=== PATIENT | female | born 1960 | race African-American/Black ===

== ENCOUNTER 2016-10-15 10:10 | Inpatient (IN) | payer OTHER ==
[~2016-10-15] VITALS: Ht 170.2 cm; Wt 174.2 kg
[2016-10-15] MEDS ORDERED: PANTOPRAZOLE IV PUSH 40 MG VIAL. IVP ONE (10:30)
[2016-10-15] MEDS ORDERED: IV NORMAL SALINE 1000ML BAG 1,000 ML IV ONE (10:30)
--- NOTE | 2016-10-15 10:32 | PHYS DOC ---
Past Medical History Past Medical History: Pancreatitis Additional Past Medical Histor: pre diabetes Additional Past Surgical Histo: "gall bladder cleaned out" Adult General Chief Complaint Chief Complaint: NAUSEA/VOMITING/DIARRHA HPI HPI Patient is a 55 year old female presents emergency department stating that she woke up this morning with some abdominal pain and discomfort with nausea feeling. She does state that she vomited numerous times. She states that she did try to drink some water and take some applesauce. Shunt she had taken anything she threw up. She states that she feels like she is having acid reflex. She states that she has had her gallbladder cleaned out not removed just cleaned out. Patient states she did eat has a proper's last night. She states there is other people that ate the same meal that she ate with no nausea noted. She does deny diarrhea. Denies fever, chills. Patient does state that she did become slightly lightheaded. She also states that she had a small bowel movement this morning it was slightly hard. She does state she has a history of constipation. Review of Systems Review of Systems Constitutional: Denies fever or chills [] Eyes: Denies change in visual acuity, redness, or eye pain [] HENT: Denies nasal congestion or sore throat [] Respiratory: Denies cough or shortness of breath [] Cardiovascular: No additional information not addressed in HPI [] GI: epigastric abdominal pain, nausea, vomiting, denies bloody stools or diarrhea [] : Denies dysuria or hematuria [] Musculoskeletal: Denies back pain or joint pain [] Integument: Denies rash or skin lesions [] Neurologic: Denies headache, focal weakness or sensory changes [] Current Medications Current Medications Current Medications Medications (Trade) Dose Ordered Sig/Ratna Start Time Stop Time Status Last Admin Dose Admin Pantoprazole Sodium (Protonix Vial) 40 mg 1X ONCE 10/15/16 10:30 10/15/16 10:35 DC 10/15/16 10:54 40 MG Sodium Chloride (Iv Sodium Chloride 0.9% 1000ml Bag) 1,000 ml @ 1,000 mls/hr 1X ONCE 10/15/16 10:30 10/15/16 11:29 DC 10/15/16 10:54 1,000 MLS/HR Allergies Allergies Allergies Coded Allergies Type Severity Reaction Last Updated Verified No Known Drug Allergies 10/15/16 No Physical Exam Physical Exam Constitutional: Well developed, well nourished, no acute distress, non-toxic appearance. [] HENT: Normocephalic, atraumatic, bilateral external ears normal, oropharynx moist, no oral exudates, nose normal. [] Eyes: PERRLA, EOMI, conjunctiva normal, no discharge. [] Neck: Normal range of motion, no tenderness, supple, no stridor. [] Cardiovascular:Heart rate regular rhythm, no murmur [] Lungs & Thorax: Bilateral breath sounds clear to auscultation [] Abdomen: Bowel sounds hypoactive, soft, epigastric tenderness, no masses, no pulsatile masses. No guarding no rebound tenderness noted Skin: Warm, dry, no erythema, no rash. [] Back: No tenderness Extremities: No tenderness, no cyanosis, no clubbing, ROM intact, no edema. [] Neurologic: Alert and oriented X 3, normal motor function, normal sensory function, no focal deficits noted. [] Psychologic: Affect normal, judgement normal, mood normal. [] Current Patient Data Vital Signs Vital Signs Date Time Temp Pulse Resp B/P Pulse Ox O2 Delivery O2 Flow Rate FiO2 10/15/16 11:00 74 18 136/82 97 Room Air 10/15/16 10:10 98.1 98.1 Lab Values Laboratory Tests Test 10/15/16 10:40 10/15/16 11:30 White Blood Count 10.1x10^3/uL (4.0-11.0) Red Blood Count 4.59x10^6/uL (3.50-5.40) Hemoglobin 14.1g/dL (12.0-15.5) Hematocrit 41.6% (36.0-47.0) Mean Corpuscular Volume 91fL (79-100) Mean Corpuscular Hemoglobin 31pg (25-35) Mean Corpuscular Hemoglobin Concent 34g/dL (31-37) Red Cell Distribution Width 13.0% (11.5-14.5) Platelet Count 182x10^3/uL (140-400) Neutrophils (%) (Auto) 89% (31-73) H Lymphocytes (%) (Auto) 5% (24-48) L Monocytes (%) (Auto) 6% (0-9) Eosinophils (%) (Auto) 1% (0-3) Basophils (%) (Auto) 0% (0-3) Neutrophils # (Auto) 9.0x10^3uL (1.8-7.7) H Lymphocytes # (Auto) 0.5x10^3/uL (1.0-4.8) L Monocytes # (Auto) 0.6x10^3/uL (0.0-1.1) Eosinophils # (Auto) 0.1x10^3/uL (0.0-0.7) Basophils # (Auto) 0.0x10^3/uL (0.0-0.2) Segmented Neutrophils % 89% (35-66) H Band Neutrophils % 2% (0-9) Lymphocytes % 4% (24-48) L Monocytes % 3% (0-10) Eosinophils % 2% (0-5) Platelet Estimate Adequate (ADEQUATE) Sodium Level 146mmol/L (136-145) H Potassium Level 4.1mmol/L (3.5-5.1) Chloride Level 109mmol/L (98-107) H Carbon Dioxide Level 27mmol/L (21-32) Anion Gap 10 (6-14) Blood Urea Nitrogen 18mg/dL (7-20) Creatinine 0.9mg/dL (0.6-1.0) Estimated GFR (Cockcroft-Gault) 78.1 BUN/Creatinine Ratio 20 (6-20) Glucose Level 117mg/dL (70-99) H Calcium Level 9.1mg/dL (8.5-10.1) Total Bilirubin 0.3mg/dL (0.2-1.0) Aspartate Amino Transferase (AST) 24U/L (15-37) Alanine Aminotransferase (ALT) 30U/L (14-59) Alkaline Phosphatase 70U/L (46-116) Total Protein 7.1g/dL (6.4-8.2) Albumin 3.6g/dL (3.4-5.0) Albumin/Globulin Ratio 1.0 (1.0-1.7) Amylase Level 290U/L (25-115) H Lipase 2916U/L (73-393) H Urine Collection Type Unknown Urine Color Yellow Urine Clarity Cloudy Urine pH 8.0 Urine Specific [place] 1.015 Urine Protein Negativemg/dL (NEG-TRACE) Urine Glucose (UA) Negativemg/dL (NEG) Urine Ketones (Stick) Negativemg/dL (NEG) Urine Blood Negative (NEG) Urine Nitrite Negative (NEG) Urine Bilirubin Negative (NEG) Urine Urobilinogen Dipstick 1.0mg/dL (0.2 mg/dL) Urine Leukocyte Esterase Negative (NEG) Urine RBC 0/HPF (0-2) Urine WBC 0/HPF (0-4) Urine Squamous Epithelial Cells None/LPF Urine Amorphous Sediment Present/HPF Urine Bacteria 0/HPF (0-FEW) Laboratory Tests 10/15/16 10:40 Laboratory Tests 10/15/16 10:40 EKG EKG [] Radiology/Procedures Radiology/Procedures [][facility] [address] [place] [address] IMAGING REPORT Signed PATIENT: MICHI HARRINGTON ACCOUNT: [id number] : 1960 LOCATION: ER AGE: 55 SEX: F EXAM STATUS: REG ER ORD. PHYSICIAN: ASHUTOSH MOSQUERA NP REASON: upper abdominal pain with hx of constipation PROCEDURE: ACUTE ABDOMEN SERIES Examination: Acute abdomen series History: History of abdominal pain, epigastric pain, history of pancreatitis, dizziness, weakness Comparison: Chest x-ray from 10/21/2009 Findings: Mild cardiomegaly. There is no acute infiltrate or visualized pneumothorax identified. No evidence of free air noted under the hemidiaphragms. Moderate amount of stool noted throughout the colon likely secondary to constipation. Gas projects in the rectum. Nonspecific bowel gas pattern. Impression: 1. No acute cardiopulmonary findings. 2. Moderate amount of stool noted throughout the colon. Correlate for constipation. DICTATED and SIGNED BY: JENIFER IKM MD DATE: 10/15/16 5279 CC: ASHUTOSH MOSQUERA EMERGENCY ROOM RN; YUE MANJARREZ Course & Med Decision Making Course & Med Decision Making Pertinent Labs and Imaging studies reviewed. (See chart for details) Spoke with patient in regards of lab values and pancreatitis. Patient states that she is still having a little bit of abdominal pain and still feels nauseated. Patient will be admitted into the hospital. Spoke with Dr. Mills who agrees with admission. Admission orders written. [] Dragon Disclaimer Dragon Disclaimer This electronic medical record was generated, in whole or in part, using a voice recognition dictation system. Departure Departure Impression: Primary Impression: Acute pancreatitis Disposition: 09 ADMITTED INPATIENT Admitting Physician: Pina Mills Condition: STABLE Referrals: YUE MANJARREZ (PCP) ASHUTOSH MOSQUERA NP Oct 15, 2016 10:32
[2016-10-15 10:56] LABS: BASO % 0 % (0-3); EOS % 1 % (0-3); HEMATOCRIT 41.6 % (36.0-47.0); HEMOGLOBIN 14.1 g/dL (12.0-15.5); LYMPH # 0.5 x10^3/uL (1.0-4.8); LYMPH % 5 % (24-48); MEAN CORPUSCULAR HEMOGLOBIN 31 pg (25-35); MEAN CORPUSCULAR HGB CONC 34 g/dL (31-37); MEAN CORPUSCULAR VOLUME 91 fL (79-100); MONO % 6 % (0-9); NEUT % 89 % (31-73); PLATELET COUNT 182 x10^3/uL (140-400); RED BLOOD COUNT 4.59 x10^6/uL (3.50-5.40); WHITE BLOOD COUNT 10.1 x10^3/uL (4.0-11.0)
[2016-10-15 11:02] LABS: CALCIUM 9.1 mg/dL (8.5-10.1); CREATININE 0.9 mg/dL (0.6-1.0); GFR 78.1; POTASSIUM 4.1 mmol/L (3.5-5.1)
[2016-10-15 11:09] LABS: ALBUMIN 3.6 g/dL (3.4-5.0); TOTAL BILIRUBIN 0.3 mg/dL (0.2-1.0); TOTAL PROTEIN 7.1 g/dL (6.4-8.2)
--- NOTE | 2016-10-15 11:11 | RAD ---
Examination: Acute abdomen series History: History of abdominal pain, epigastric pain, history of pancreatitis, dizziness, weakness Comparison: Chest x-ray from 10/21/2009 Findings: Mild cardiomegaly. There is no acute infiltrate or visualized pneumothorax identified. No evidence of free air noted under the hemidiaphragms. Moderate amount of stool noted throughout the colon likely secondary to constipation. Gas projects in the rectum. Nonspecific bowel gas pattern. Impression: 1. No acute cardiopulmonary findings. 2. Moderate amount of stool noted throughout the colon. Correlate for constipation.
[2016-10-15 11:38] LABS: BILIRUBIN,URINE NEGATIVE (NEG); GLUCOSE,URINE NEGATIVE (NEG); NITRITE,URINE NEGATIVE (NEG); PROTEIN,URINE NEGATIVE (NEG-TRACE)
[2016-10-15 11:39] LABS: % EOS 2 % (0-5); PLT ESTIMATE ADEQUATE (ADEQUATE)
[2016-10-15 11:47] LABS: BACTERIA,URINE 0 /HPF (0-FEW); RBC,URINE 0 /HPF (0-2); WBC,URINE 0 /HPF (0-4)
[2016-10-15] MEDS ORDERED: FENTANYL PF 100 MCG/2 ML VIAL. IV PRN (12:15)
[2016-10-15] MEDS ORDERED: ONDANSETRON PF 4 MG/2 ML VIAL. IV PRN (12:15)
[2016-10-15] MEDS ORDERED: MULTIVIT INFUSN,ADULT 4,VIT K 10 ML, FOLIC ACID 1 MG, THIAMINE 100 MG in IV NORMAL SALI... IV ONE (13:00)
[2016-10-15 13:25] VITALS: BP 120/61
--- NOTE | 2016-10-15 14:14 | HP ---
ADMIT DATE: 10/15/2016 CHIEF COMPLAINT: Abdominal pain. HISTORY OF THE PRESENT ILLNESS: The patient is a pleasant middle-aged female who continues to drink. She states she only had one Kim at this time. Once again, she presents with pancreatitis. Her lipase is 2916. I discussed the case with the ER physician. We are going to admit the patient and consult Gastroenterology. PAST MEDICAL HISTORY: Alcoholism, previous chronic pancreatitis. ALLERGIES: None. FAMILY HISTORY: Diabetes. SOCIAL HISTORY: She drinks. She does not do any drugs. MEDICATIONS: Reviewed. Please refer to the MRAD. REVIEW OF SYSTEMS: GENERAL: No history of weight change, weakness, or fevers. SKIN: No bruising, hair changes, or rashes. EYES: No blurred, double, or loss of vision. NOSE AND THROAT: No history of nosebleeds, hoarseness, or sore throat. HEART: No history of palpitations, chest pain, or shortness of breath on exertion. LUNGS: Denies cough, hemoptysis, wheezing or shortness of breath. GASTROINTESTINAL: She complains of abdominal pain. GENITOURINARY: No history of frequency, urgency, hesitancy, or nocturia. NEUROLOGIC: Denies history of numbness, tingling, tremor, or weakness. PSYCHIATRIC: No history of panic, anxiety, or depression. ENDOCRINE: No history of heat or cold intolerance, polyuria, or polydipsia. EXTREMITIES: Denies muscle weakness, joint pain, pain on walking, or stiffness. PHYSICAL EXAMINATION: VITAL SIGNS: Temperature afebrile, pulse 77, respirations 18, and blood pressure 139/83. GENERAL: She is alert, cooperative, and complaining of pain. HEART: Normal S1 and S2. LUNGS: Clear. ABDOMEN: Soft. Decreased bowel sounds, tender. EXTREMITIES: No edema. SKIN: No rashes. PSYCHIATRIC: She is depressed. VASCULAR: Good capillary refill. ENDOCRINE: No thyromegaly. LYMPHATICS: There are no cervical nodes. HEMATOPOIETIC: No bruising. LABORATORY DATA: White count 10, hemoglobin 14, and platelets 182. Electrolytes: Sodium 146, potassium 4.1, chloride 109, bicarbonate 27, BUN 18, creatinine 0.9, glucose 117, and lipase 2916. ASSESSMENT AND PLAN: Alcoholic pancreatitis. The patient has been admitted. We will start IV banana bag, p.r.n. narcotics, IV fluids, resume home medications, but continue otherwise n.p.o. GISELA CANCINO DO DR: MISTY/frederick JOB#: [id number] / [id number]
[2016-10-15 15:00] VITALS: BP 123/69
--- NOTE | 2016-10-15 15:02 | PDOC2 ---
CONSULT Date of Consult Date of Consult DATE: 10/15/16 TIME: 14:47 Reason for Consult Reason for Consult: Pancreatitis Referring Physician Referring Physician: Dr. Mills Source Source: Chart review, Patient History of Present Illness Reason for Visit: 55 y/o female who developed acute epigastric pain early this AM. Had multiple episodes of nausea and vomiting w/o diarrhea. Ultimately presented to ER where elevated Lipase c/w pancreatitis. Now feeling improved. Has h/o pancreatitis during a remote ; doesn't really recall if truly stones or not, but underwent what sounds like ERCP, maybe with clearing of CBD stones or sludge. DID NOT have cholecystectomy. She believes she may have had milder attacks with each of her pregnancies, though not documented. At one time she was taking pancreatic enzymes and felt these were effective. Never an abuser of alcohol. No FH of pancreatitis. No imaging above plain films of the abdomen here. Typically free of heartburn, dysphagia. May have occasional LUQ "twinges" she attributes to her pancreas. No PUD, liver history. Non-smoker. Only occasional alcohol. No ASA, NSAID use. Frequent constipation. No diarrhea, hematochezia nor melena. Wt/appetite OK before current issues. Believes she had normal colonoscopy ~10 or more years ago. Never EGD. GI family history positive for CRC in mother. Past Medical History Endocrine: Diabetes ("pre-diabetes") Past Surgical History Past Surgical History None Family History Family History: Hypertension Social History No ALCOHOL: occassional Drugs: None Current Problem List Problem List Problems Medical Problems: (1) Acute pancreatitis Status: Acute Current Medications Current Medications Current Medications Sodium Chloride (Iv Sodium Chloride 0.9% 1000ml Bag) 1,000 ml @ 1,000 mls/hr 1X ONCE IV Last administered on 10/15/16 10:54; Start 10/15/16 at 10:30; Stop 10/15/16 at 11:29; Status DC Pantoprazole Sodium (Protonix Vial) 40 mg 1X ONCE IVP Last administered on 10/15 10:54; Start 10/15/16 at 10:30; Stop 10/15/16 at 10:35; Status DC Ondansetron HCl (Zofran) 4 mg PRN Q8HRS PRN IV NAUSEA/VOMITING; Start 10/15/16 at 12:15; Stop 10/16/16 at 12:14 Fentanyl Citrate 50 mcg 50 mcg PRN Q2HR PRN IV PAIN; Start 10/15/16 at 12:15; Stop 10/16/16 at 12:14 Sodium Chloride 1,000 ml @ 125 mls/hr Q8H IV ; Start 10/15/16 at 14:00; Stop 10/16/16 at 13:59 Multivitamins/ Minerals/Folic Acid/Thiamine HCl/ Sodium Chloride (Infuvite Adult / Iv Sodium Chloride 0.9% 1000ml Bag) 1,011.2 ml @ 1,000 mls/ hr 1X ONCE IV Last administered on 10/15/16t 12:43; Start 10/15/16 at 13:00; Stop 10/15/16 at 14: 00; Status DC Allergies Allergies: Coded Allergies: No Known Drug Allergies (Unverified , 10/15/16) ROS Review of System 10-point review otherwise negative. Physical Exam General: Alert, Oriented X3, Cooperative, mild distress Lungs: Clear to auscultation Heart: Regular rate, Normal S1, Normal S2, No murmurs Abdomen: Normal bowel sounds, Soft, No hepatosplenomegaly, No masses, Other ( Mild epigastric tenderness) Extremities: No cyanosis, No edema Skin: No significant lesion Neuro: Normal speech, Strength at 5/5 X4 ext, Normal tone, Sensation intact, Cranial nerves 3-12 NL, Reflexes 2+ Psych/Mental Status: Mental status NL, Mood NL MUSCULOSKELETAL: No deformity, No swelling Vitals VITALS Vital Signs Date Time Temp Pulse Resp B/P Pulse Ox O2 Delivery O2 Flow Rate FiO2 10/15/16 13:51 Room Air 10/15/16 13:25 99.7 81 18 120/61 97 99.7 Labs Labs Laboratory Tests Test 10/15/16 10:40 10/15/16 11:30 White Blood Count 10.1x10^3/uL (4.0-11.0) Red Blood Count 4.59x10^6/uL (3.50-5.40) Hemoglobin 14.1g/dL (12.0-15.5) Hematocrit 41.6% (36.0-47.0) Mean Corpuscular Volume 91fL (79-100) Mean Corpuscular Hemoglobin 31pg (25-35) Mean Corpuscular Hemoglobin Concent 34g/dL (31-37) Red Cell Distribution Width 13.0% (11.5-14.5) Platelet Count 182x10^3/uL (140-400) Neutrophils (%) (Auto) 89% (31-73) Lymphocytes (%) (Auto) 5% (24-48) Monocytes (%) (Auto) 6% (0-9) Eosinophils (%) (Auto) 1% (0-3) Basophils (%) (Auto) 0% (0-3) Neutrophils # (Auto) 9.0x10^3uL (1.8-7.7) Lymphocytes # (Auto) 0.5x10^3/uL (1.0-4.8) Monocytes # (Auto) 0.6x10^3/uL (0.0-1.1) Eosinophils # (Auto) 0.1x10^3/uL (0.0-0.7) Basophils # (Auto) 0.0x10^3/uL (0.0-0.2) Segmented Neutrophils % 89% (35-66) Band Neutrophils % 2% (0-9) Lymphocytes % 4% (24-48) Monocytes % 3% (0-10) Eosinophils % 2% (0-5) Platelet Estimate Adequate (ADEQUATE) Sodium Level 146mmol/L (136-145) Potassium Level 4.1mmol/L (3.5-5.1) Chloride Level 109mmol/L (98-107) Carbon Dioxide Level 27mmol/L (21-32) Anion Gap 10 (6-14) Blood Urea Nitrogen 18mg/dL (7-20) Creatinine 0.9mg/dL (0.6-1.0) Estimated GFR (Cockcroft-Gault) 78.1 BUN/Creatinine Ratio 20 (6-20) Glucose Level 117mg/dL (70-99) Calcium Level 9.1mg/dL (8.5-10.1) Total Bilirubin 0.3mg/dL (0.2-1.0) Aspartate Amino Transf (AST/SGOT) 24U/L (15-37) Alanine Aminotransferase (ALT/SGPT) 30U/L (14-59) Alkaline Phosphatase 70U/L (46-116) Total Protein 7.1g/dL (6.4-8.2) Albumin 3.6g/dL (3.4-5.0) Albumin/Globulin Ratio 1.0 (1.0-1.7) Amylase Level 290U/L (25-115) Lipase 2916U/L (73-393) Urine Collection Type Unknown Urine Color Yellow Urine Clarity Cloudy Urine pH 8.0 Urine Specific [place] 1.015 Urine Protein Negativemg/dL (NEG-TRACE) Urine Glucose (UA) Negativemg/dL (NEG) Urine Ketones (Stick) Negativemg/dL (NEG) Urine Blood Negative (NEG) Urine Nitrite Negative (NEG) Urine Bilirubin Negative (NEG) Urine Urobilinogen Dipstick 1.0mg/dL (0.2 mg/dL) Urine Leukocyte Esterase Negative (NEG) Urine RBC 0/HPF (0-2) Urine WBC 0/HPF (0-4) Urine Squamous Epithelial Cells None/LPF Urine Amorphous Sediment Present/HPF Urine Bacteria 0/HPF (0-FEW) Laboratory Tests Test 10/15/16 10:40 10/15/16 11:30 White Blood Count 10.1x10^3/uL (4.0-11.0) Red Blood Count 4.59x10^6/uL (3.50-5.40) Hemoglobin 14.1g/dL (12.0-15.5) Hematocrit 41.6% (36.0-47.0) Mean Corpuscular Volume 91fL (79-100) Mean Corpuscular Hemoglobin 31pg (25-35) Mean Corpuscular Hemoglobin Concent 34g/dL (31-37) Red Cell Distribution Width 13.0% (11.5-14.5) Platelet Count 182x10^3/uL (140-400) Neutrophils (%) (Auto) 89% (31-73) Lymphocytes (%) (Auto) 5% (24-48) Monocytes (%) (Auto) 6% (0-9) Eosinophils (%) (Auto) 1% (0-3) Basophils (%) (Auto) 0% (0-3) Neutrophils # (Auto) 9.0x10^3uL (1.8-7.7) Lymphocytes # (Auto) 0.5x10^3/uL (1.0-4.8) Monocytes # (Auto) 0.6x10^3/uL (0.0-1.1) Eosinophils # (Auto) 0.1x10^3/uL (0.0-0.7) Basophils # (Auto) 0.0x10^3/uL (0.0-0.2) Segmented Neutrophils % 89% (35-66) Band Neutrophils % 2% (0-9) Lymphocytes % 4% (24-48) Monocytes % 3% (0-10) Eosinophils % 2% (0-5) Platelet Estimate Adequate (ADEQUATE) Sodium Level 146mmol/L (136-145) Potassium Level 4.1mmol/L (3.5-5.1) Chloride Level 109mmol/L (98-107) Carbon Dioxide Level 27mmol/L (21-32) Anion Gap 10 (6-14) Blood Urea Nitrogen 18mg/dL (7-20) Creatinine 0.9mg/dL (0.6-1.0) Estimated GFR (Cockcroft-Gault) 78.1 BUN/Creatinine Ratio 20 (6-20) Glucose Level 117mg/dL (70-99) Calcium Level 9.1mg/dL (8.5-10.1) Total Bilirubin 0.3mg/dL (0.2-1.0) Aspartate Amino Transf (AST/SGOT) 24U/L (15-37) Alanine Aminotransferase (ALT/SGPT) 30U/L (14-59) Alkaline Phosphatase 70U/L (46-116) Total Protein 7.1g/dL (6.4-8.2) Albumin 3.6g/dL (3.4-5.0) Albumin/Globulin Ratio 1.0 (1.0-1.7) Amylase Level 290U/L (25-115) Lipase 2916U/L (73-393) Urine Collection Type Unknown Urine Color Yellow Urine Clarity Cloudy Urine pH 8.0 Urine Specific [place] 1.015 Urine Protein Negativemg/dL (NEG-TRACE) Urine Glucose (UA) Negativemg/dL (NEG) Urine Ketones (Stick) Negativemg/dL (NEG) Urine Blood Negative (NEG) Urine Nitrite Negative (NEG) Urine Bilirubin Negative (NEG) Urine Urobilinogen Dipstick 1.0mg/dL (0.2 mg/dL) Urine Leukocyte Esterase Negative (NEG) Urine RBC 0/HPF (0-2) Urine WBC 0/HPF (0-4) Urine Squamous Epithelial Cells None/LPF Urine Amorphous Sediment Present/HPF Urine Bacteria 0/HPF (0-FEW) Images Images Plain films unrevealing. Assessment/Plan Assessment/Plan IMP: 1. Pancreatitis, recurrent. Cause a bit obscure historically, though doesn't seem enough alcohol history to invoke this. Hard to believe cholecystectomy not done if this was felt to be the issue. Failing any biliary disease, idiopathic pancreatitis accounts for a sizeable portion. SOD remotely possible. 2. FH of CRC in first-degree relative. A bit overdue for screening. REC: 1. Continue general supportive measures. 2. CT abdomen/pelvis. If still not clear gallstones or not, sono. --other pending. Thank you for allowing us to assist in the care of this patient. Please call if questions. JOVITA NGUYEN MD Oct 15, 2016 15:02
[2016-10-15] MEDS: IV NORMAL SALINE 1000ML BAG 1,000 ML IV SCH ×2 (15:22→20:16)
[2016-10-15] MEDS ORDERED: IOHEXOL 300 MG/ML 75 ML VIAL IV ONE (16:30)
[2016-10-15] MEDS ORDERED: IOHEXOL 240 MG/ML 50ML VIAL. PO ONE (16:30)
[2016-10-15] MEDS ORDERED: CONTRAST GIVEN MC PRN (16:30)
--- NOTE | 2016-10-15 16:45 | ACF ---
Admission Forms Criteria PANCREATITIS Clinical Indications for Admission to Inpatient Care (Place 'X' for any and all applicable criteria): Admission is indicated for ANY ONE of the following (1)(2)(3)(4): [X]I. Acute pancreatitis[A] as indicated by 2 or more of the following: [X]a) Abdominal pain (eg, epigastric, left upper quadrant) [X]b) Serum amylase or serum lipase greater than 3 times the upper limit of normal [ ]c) Characteristic findings from abdominal imaging (eg, pancreatic inflammation, pancreatic necrosis, peripancreatic fluid collection)[B] [ ]II. Pancreatitis (acute or chronic ) requiring inpatient care as indicated by 1 or more of the following : [ ]a) Inability to maintain oral hydration Hypoxemia [ ]b) Evidence of infection (eg, fever, peripancreatic abscess) [ ]c) Severe pain requiring acute inpatient management [ ]d) Hemodynamic instability [ ]e) Hypoxemia [ ]f) Acute renal failure [ ]g) Severe electrolyte abnormalities Extended stay beyond goal length of stay may be needed for (1)(11) [ ]a) Severe acute pancreatitis (10)(19) [ ]b) Persistent symptoms, ascites, or pleural effusion [ ]c) Abdominal compartment syndrome (10) [ ]d) Late complications [ ]e) Acute renal failure (27) [ ]f) Gallstones in gallbladder The original [employer] content created by [employer] has been revised. The portions of the content which have been revised are identified through the use of italic text or in bold,and [facility] has neither reviewed nor approved the modified material.All other unmodified content is copyright [facility]. Please see references footnoted in the original [facility] edition 2016 Admission Criteria Met?: Yes MIMA CORBIN Oct 15, 2016 16:45
[2016-10-15] MEDS: PIPERACILLIN/TAZOBACTAM 3.375 GM in IV NORMAL SALINE 50ML 50 ML IV SCH ×2 (17:57→23:49)
[2016-10-15 19:00] VITALS: BP 110/62
[2016-10-15 23:00] VITALS: BP 102/64
[2016-10-16 03:00] VITALS: BP 107/68
[2016-10-16 04:08] LABS: BASO % 0 % (0-3); EOS % 1 % (0-3); HEMATOCRIT 36.3 % (36.0-47.0); HEMOGLOBIN 12.3 g/dL (12.0-15.5); LYMPH # 0.8 x10^3/uL (1.0-4.8); LYMPH % 13 % (24-48); MEAN CORPUSCULAR HEMOGLOBIN 31 pg (25-35); MEAN CORPUSCULAR HGB CONC 34 g/dL (31-37); MEAN CORPUSCULAR VOLUME 91 fL (79-100); MONO % 6 % (0-9); NEUT % 80 % (31-73); PLATELET COUNT 153 x10^3/uL (140-400); RED BLOOD COUNT 3.97 x10^6/uL (3.50-5.40); RED CELL DISTRIBUTION WIDTH 13.2 % (11.5-14.5); WHITE BLOOD COUNT 6.4 x10^3/uL (4.0-11.0)
[2016-10-16 04:29] LABS: AMYLASE 102 U/L (25-115)
[2016-10-16 04:41] LABS: DIRECT BILIRUBIN 0.2 mg/dL (0.0-0.2); TOTAL BILIRUBIN 0.7 mg/dL (0.2-1.0); TOTAL PROTEIN 5.7 g/dL (6.4-8.2)
[2016-10-16 04:45] LABS: CALCIUM 7.9 mg/dL (8.5-10.1); CREATININE 0.9 mg/dL (0.6-1.0); GFR 78.1; POTASSIUM 3.2 mmol/L (3.5-5.1)
[2016-10-16] MEDS: PIPERACILLIN/TAZOBACTAM 3.375 GM in IV NORMAL SALINE 50ML 50 ML IV SCH ×4 (05:48→23:37)
[2016-10-16] MEDS: IV NORMAL SALINE 1000ML BAG 1,000 ML IV SCH (05:48)
[2016-10-16 07:00] VITALS: BP 117/65
[2016-10-16] MEDS ORDERED: ONDANSETRON PF 4 MG/2 ML VIAL. IV PRN (07:15)
[2016-10-16] MEDS ORDERED: POTASSIUM CHLORIDE 20 MEQ TABLET.ER. PO ONE (07:15)
--- NOTE | 2016-10-16 08:49 | RAD ---
CT scan of the abdomen and pelvis with contrast 10/15/2016 Clinical history: Pancreatitis. Technique: After oral and intravenous administration of contrast, contiguous, 5 mm axial sections were obtained through the abdomen and pelvis. 75 cc of Omnipaque 300 were administered intravenously during this examination. One or more of the following individualized dose reduction techniques were utilized for this study: 1. Automated exposure control. 2. Adjustment of the mA and/or kV according to patient size. 3. Use of iterative reconstruction technique. Findings: Comparison is made to an ultrasound of the right upper quadrant abdomen dated 01/12/2016. Images through the lung bases demonstrate minimal dependent subsegmental atelectasis bilaterally. The liver parenchyma has a decreased attenuation consistent with mild fatty infiltration. The spleen, adrenal glands and kidneys are within normal limits. No focal abnormality of the pancreas is seen. No pancreatic pseudocyst is noted. The abdominal aorta tapers normally. Mild atherosclerotic calcification of the abdominal aorta is seen. The gallbladder is contracted. No free fluid or free air is seen within the abdomen. Air and stool is seen throughout the colon. The appendix is well-visualized and is within normal limits. Images through the pelvis demonstrate the urinary bladder distended with urine. Calcifications are seen within the pelvis consistent with phleboliths. No free fluid is seen. Minimal S shaped curvature of the thoracolumbar spine is seen. Degenerative changes are seen involving the lower thoracic and mid and lower lumbar spine. Impression: No acute abnormality is seen.
[2016-10-16] MEDS ORDERED: IV NORMAL SALINE 1000ML BAG 1,000 ML IV SCH (09:02)
--- NOTE | 2016-10-16 09:05 | PDOC ---
PROGRESS NOTES Chief Complaint Chief Complaint 1. PAncreatitis, idiopathic? vs GB 2. Acute on chronic pancreatitis started since History of Present Illness History of Present Illness NO abd pain Lipase now normal CT abd normal GI note reviewed PLAN: Start Liquid diet Advance as tolerated Current IVF to consume CHeck abd sono, look for gB stones Can check lipids - though she is not morbidly obese and non diabetic doubt TG will be alexys high Dw RN and pt Vitals Vitals Vital Signs Date Time Temp Pulse Resp B/P Pulse Ox O2 Delivery O2 Flow Rate FiO2 10/16/16 07:00 97.9 82 18 117/65 95 Room Air 97.9 Physical Exam General: Alert, Oriented X3, Cooperative, mild distress Heart: Regular rate, Normal S1, Normal S2, No murmurs Abdomen: Normal bowel sounds, Soft, No hepatosplenomegaly, No masses, Other ( Mild epigastric tenderness) Extremities: No cyanosis, No edema Skin: No significant lesion Labs LABS Laboratory Tests Test 10/15/16 10:40 10/15/16 11:30 10/16/16 03:20 White Blood Count 10.1x10^3/uL (4.0-11.0) 6.4x10^3/uL (4.0-11.0) Red Blood Count 4.59x10^6/uL (3.50-5.40) 3.97x10^6/uL (3.50-5.40) Hemoglobin 14.1g/dL (12.0-15.5) 12.3g/dL (12.0-15.5) Hematocrit 41.6% (36.0-47.0) 36.3% (36.0-47.0) Mean Corpuscular Volume 91fL (79-100) 91fL (79-100) Mean Corpuscular Hemoglobin 31pg (25-35) 31pg (25-35) Mean Corpuscular Hemoglobin Concent 34g/dL (31-37) 34g/dL (31-37) Red Cell Distribution Width 13.0% (11.5-14.5) 13.2% (11.5-14.5) Platelet Count 182x10^3/uL (140-400) 153x10^3/uL (140-400) Neutrophils (%) (Auto) 89% (31-73) 80% (31-73) Lymphocytes (%) (Auto) 5% (24-48) 13% (24-48) Monocytes (%) (Auto) 6% (0-9) 6% (0-9) Eosinophils (%) (Auto) 1% (0-3) 1% (0-3) Basophils (%) (Auto) 0% (0-3) 0% (0-3) Neutrophils # (Auto) 9.0x10^3uL (1.8-7.7) 5.1x10^3uL (1.8-7.7) Lymphocytes # (Auto) 0.5x10^3/uL (1.0-4.8) 0.8x10^3/uL (1.0-4.8) Monocytes # (Auto) 0.6x10^3/uL (0.0-1.1) 0.4x10^3/uL (0.0-1.1) Eosinophils # (Auto) 0.1x10^3/uL (0.0-0.7) 0.1x10^3/uL (0.0-0.7) Basophils # (Auto) 0.0x10^3/uL (0.0-0.2) 0.0x10^3/uL (0.0-0.2) Segmented Neutrophils % 89% (35-66) Band Neutrophils % 2% (0-9) Lymphocytes % 4% (24-48) Monocytes % 3% (0-10) Eosinophils % 2% (0-5) Platelet Estimate Adequate (ADEQUATE) Sodium Level 146mmol/L (136-145) 145mmol/L (136-145) Potassium Level 4.1mmol/L (3.5-5.1) 3.2mmol/L (3.5-5.1) Chloride Level 109mmol/L (98-107) 109mmol/L (98-107) Carbon Dioxide Level 27mmol/L (21-32) 25mmol/L (21-32) Anion Gap 10 (6-14) 11 (6-14) Blood Urea Nitrogen 18mg/dL (7-20) 15mg/dL (7-20) Creatinine 0.9mg/dL (0.6-1.0) 0.9mg/dL (0.6-1.0) Estimated GFR (Cockcroft-Gault) 78.1 78.1 BUN/Creatinine Ratio 20 (6-20) Glucose Level 117mg/dL (70-99) 83mg/dL (70-99) Calcium Level 9.1mg/dL (8.5-10.1) 7.9mg/dL (8.5-10.1) Total Bilirubin 0.3mg/dL (0.2-1.0) 0.7mg/dL (0.2-1.0) Aspartate Amino Transf (AST/SGOT) 24U/L (15-37) 23U/L (15-37) Alanine Aminotransferase (ALT/SGPT) 30U/L (14-59) 28U/L (14-59) Alkaline Phosphatase 70U/L (46-116) 58U/L (46-116) Total Protein 7.1g/dL (6.4-8.2) 5.7g/dL (6.4-8.2) Albumin 3.6g/dL (3.4-5.0) 3.0g/dL (3.4-5.0) Albumin/Globulin Ratio 1.0 (1.0-1.7) Triglycerides Level 47mg/dL (0-150) Amylase Level 290U/L (25-115) 102U/L (25-115) Lipase 2916U/L (73-393) 224U/L (73-393) Urine Collection Type Unknown Urine Color Yellow Urine Clarity Cloudy Urine pH 8.0 Urine Specific [place] 1.015 Urine Protein Negativemg/dL (NEG-TRACE) Urine Glucose (UA) Negativemg/dL (NEG) Urine Ketones (Stick) Negativemg/dL (NEG) Urine Blood Negative (NEG) Urine Nitrite Negative (NEG) Urine Bilirubin Negative (NEG) Urine Urobilinogen Dipstick 1.0mg/dL (0.2 mg/dL) Urine Leukocyte Esterase Negative (NEG) Urine RBC 0/HPF (0-2) Urine WBC 0/HPF (0-4) Urine Squamous Epithelial Cells None/LPF Urine Amorphous Sediment Present/HPF Urine Bacteria 0/HPF (0-FEW) Direct Bilirubin 0.2mg/dL (0.0-0.2) Review of Systems Review of Systems no abd pain, nasuea, emesis Assessment and Plan Assessmemt and Plan Problems Medical Problems: (1) Acute pancreatitis Status: Acute Problems: Comment Review of Relevant I have reviewed the following items nixon (where applicable) has been applied. Labs Laboratory Tests Test 10/15/16 10:40 10/15/16 11:30 10/16/16 03:20 White Blood Count 10.1x10^3/uL (4.0-11.0) 6.4x10^3/uL (4.0-11.0) Red Blood Count 4.59x10^6/uL (3.50-5.40) 3.97x10^6/uL (3.50-5.40) Hemoglobin 14.1g/dL (12.0-15.5) 12.3g/dL (12.0-15.5) Hematocrit 41.6% (36.0-47.0) 36.3% (36.0-47.0) Mean Corpuscular Volume 91fL (79-100) 91fL (79-100) Mean Corpuscular Hemoglobin 31pg (25-35) 31pg (25-35) Mean Corpuscular Hemoglobin Concent 34g/dL (31-37) 34g/dL (31-37) Red Cell Distribution Width 13.0% (11.5-14.5) 13.2% (11.5-14.5) Platelet Count 182x10^3/uL (140-400) 153x10^3/uL (140-400) Neutrophils (%) (Auto) 89% (31-73) 80% (31-73) Lymphocytes (%) (Auto) 5% (24-48) 13% (24-48) Monocytes (%) (Auto) 6% (0-9) 6% (0-9) Eosinophils (%) (Auto) 1% (0-3) 1% (0-3) Basophils (%) (Auto) 0% (0-3) 0% (0-3) Neutrophils # (Auto) 9.0x10^3uL (1.8-7.7) 5.1x10^3uL (1.8-7.7) Lymphocytes # (Auto) 0.5x10^3/uL (1.0-4.8) 0.8x10^3/uL (1.0-4.8) Monocytes # (Auto) 0.6x10^3/uL (0.0-1.1) 0.4x10^3/uL (0.0-1.1) Eosinophils # (Auto) 0.1x10^3/uL (0.0-0.7) 0.1x10^3/uL (0.0-0.7) Basophils # (Auto) 0.0x10^3/uL (0.0-0.2) 0.0x10^3/uL (0.0-0.2) Segmented Neutrophils % 89% (35-66) Band Neutrophils % 2% (0-9) Lymphocytes % 4% (24-48) Monocytes % 3% (0-10) Eosinophils % 2% (0-5) Platelet Estimate Adequate (ADEQUATE) Sodium Level 146mmol/L (136-145) 145mmol/L (136-145) Potassium Level 4.1mmol/L (3.5-5.1) 3.2mmol/L (3.5-5.1) Chloride Level 109mmol/L (98-107) 109mmol/L (98-107) Carbon Dioxide Level 27mmol/L (21-32) 25mmol/L (21-32) Anion Gap 10 (6-14) 11 (6-14) Blood Urea Nitrogen 18mg/dL (7-20) 15mg/dL (7-20) Creatinine 0.9mg/dL (0.6-1.0) 0.9mg/dL (0.6-1.0) Estimated GFR (Cockcroft-Gault) 78.1 78.1 BUN/Creatinine Ratio 20 (6-20) Glucose Level 117mg/dL (70-99) 83mg/dL (70-99) Calcium Level 9.1mg/dL (8.5-10.1) 7.9mg/dL (8.5-10.1) Total Bilirubin 0.3mg/dL (0.2-1.0) 0.7mg/dL (0.2-1.0) Aspartate Amino Transf (AST/SGOT) 24U/L (15-37) 23U/L (15-37) Alanine Aminotransferase (ALT/SGPT) 30U/L (14-59) 28U/L (14-59) Alkaline Phosphatase 70U/L (46-116) 58U/L (46-116) Total Protein 7.1g/dL (6.4-8.2) 5.7g/dL (6.4-8.2) Albumin 3.6g/dL (3.4-5.0) 3.0g/dL (3.4-5.0) Albumin/Globulin Ratio 1.0 (1.0-1.7) Triglycerides Level 47mg/dL (0-150) Amylase Level 290U/L (25-115) 102U/L (25-115) Lipase 2916U/L (73-393) 224U/L (73-393) Urine Collection Type Unknown Urine Color Yellow Urine Clarity Cloudy Urine pH 8.0 Urine Specific [place] 1.015 Urine Protein Negativemg/dL (NEG-TRACE) Urine Glucose (UA) Negativemg/dL (NEG) Urine Ketones (Stick) Negativemg/dL (NEG) Urine Blood Negative (NEG) Urine Nitrite Negative (NEG) Urine Bilirubin Negative (NEG) Urine Urobilinogen Dipstick 1.0mg/dL (0.2 mg/dL) Urine Leukocyte Esterase Negative (NEG) Urine RBC 0/HPF (0-2) Urine WBC 0/HPF (0-4) Urine Squamous Epithelial Cells None/LPF Urine Amorphous Sediment Present/HPF Urine Bacteria 0/HPF (0-FEW) Direct Bilirubin 0.2mg/dL (0.0-0.2) Laboratory Tests Test 10/15/16 10:40 10/15/16 11:30 10/16/16 03:20 White Blood Count 10.1x10^3/uL (4.0-11.0) 6.4x10^3/uL (4.0-11.0) Red Blood Count 4.59x10^6/uL (3.50-5.40) 3.97x10^6/uL (3.50-5.40) Hemoglobin 14.1g/dL (12.0-15.5) 12.3g/dL (12.0-15.5) Hematocrit 41.6% (36.0-47.0) 36.3% (36.0-47.0) Mean Corpuscular Volume 91fL (79-100) 91fL (79-100) Mean Corpuscular Hemoglobin 31pg (25-35) 31pg (25-35) Mean Corpuscular Hemoglobin Concent 34g/dL (31-37) 34g/dL (31-37) Red Cell Distribution Width 13.0% (11.5-14.5) 13.2% (11.5-14.5) Platelet Count 182x10^3/uL (140-400) 153x10^3/uL (140-400) Neutrophils (%) (Auto) 89% (31-73) 80% (31-73) Lymphocytes (%) (Auto) 5% (24-48) 13% (24-48) Monocytes (%) (Auto) 6% (0-9) 6% (0-9) Eosinophils (%) (Auto) 1% (0-3) 1% (0-3) Basophils (%) (Auto) 0% (0-3) 0% (0-3) Neutrophils # (Auto) 9.0x10^3uL (1.8-7.7) 5.1x10^3uL (1.8-7.7) Lymphocytes # (Auto) 0.5x10^3/uL (1.0-4.8) 0.8x10^3/uL (1.0-4.8) Monocytes # (Auto) 0.6x10^3/uL (0.0-1.1) 0.4x10^3/uL (0.0-1.1) Eosinophils # (Auto) 0.1x10^3/uL (0.0-0.7) 0.1x10^3/uL (0.0-0.7) Basophils # (Auto) 0.0x10^3/uL (0.0-0.2) 0.0x10^3/uL (0.0-0.2) Segmented Neutrophils % 89% (35-66) Band Neutrophils % 2% (0-9) Lymphocytes % 4% (24-48) Monocytes % 3% (0-10) Eosinophils % 2% (0-5) Platelet Estimate Adequate (ADEQUATE) Sodium Level 146mmol/L (136-145) 145mmol/L (136-145) Potassium Level 4.1mmol/L (3.5-5.1) 3.2mmol/L (3.5-5.1) Chloride Level 109mmol/L (98-107) 109mmol/L (98-107) Carbon Dioxide Level 27mmol/L (21-32) 25mmol/L (21-32) Anion Gap 10 (6-14) 11 (6-14) Blood Urea Nitrogen 18mg/dL (7-20) 15mg/dL (7-20) Creatinine 0.9mg/dL (0.6-1.0) 0.9mg/dL (0.6-1.0) Estimated GFR (Cockcroft-Gault) 78.1 78.1 BUN/Creatinine Ratio 20 (6-20) Glucose Level 117mg/dL (70-99) 83mg/dL (70-99) Calcium Level 9.1mg/dL (8.5-10.1) 7.9mg/dL (8.5-10.1) Total Bilirubin 0.3mg/dL (0.2-1.0) 0.7mg/dL (0.2-1.0) Aspartate Amino Transf (AST/SGOT) 24U/L (15-37) 23U/L (15-37) Alanine Aminotransferase (ALT/SGPT) 30U/L (14-59) 28U/L (14-59) Alkaline Phosphatase 70U/L (46-116) 58U/L (46-116) Total Protein 7.1g/dL (6.4-8.2) 5.7g/dL (6.4-8.2) Albumin 3.6g/dL (3.4-5.0) 3.0g/dL (3.4-5.0) Albumin/Globulin Ratio 1.0 (1.0-1.7) Triglycerides Level 47mg/dL (0-150) Amylase Level 290U/L (25-115) 102U/L (25-115) Lipase 2916U/L (73-393) 224U/L (73-393) Urine Collection Type Unknown Urine Color Yellow Urine Clarity Cloudy Urine pH 8.0 Urine Specific [place] 1.015 Urine Protein Negativemg/dL (NEG-TRACE) Urine Glucose (UA) Negativemg/dL (NEG) Urine Ketones (Stick) Negativemg/dL (NEG) Urine Blood Negative (NEG) Urine Nitrite Negative (NEG) Urine Bilirubin Negative (NEG) Urine Urobilinogen Dipstick 1.0mg/dL (0.2 mg/dL) Urine Leukocyte Esterase Negative (NEG) Urine RBC 0/HPF (0-2) Urine WBC 0/HPF (0-4) Urine Squamous Epithelial Cells None/LPF Urine Amorphous Sediment Present/HPF Urine Bacteria 0/HPF (0-FEW) Direct Bilirubin 0.2mg/dL (0.0-0.2) Medications Current Medications Sodium Chloride (Iv Sodium Chloride 0.9% 1000ml Bag) 1,000 ml @ 1,000 mls/hr 1X ONCE IV Last administered on 10/15/16 10:54; Start 10/15/16 at 10:30; Stop 10/15/16 at 11:29; Status DC Pantoprazole Sodium (Protonix Vial) 40 mg 1X ONCE IVP Last administered on 10/15 10:54; Start 10/15/16 at 10:30; Stop 10/15/16 at 10:35; Status DC Ondansetron HCl (Zofran) 4 mg PRN Q8HRS PRN IV NAUSEA/VOMITING Last administered on 10/15/16 20:17; Start 10/15/16 at 12:15; Stop 10/16/16 at 07:16; Status DC Fentanyl Citrate 50 mcg 50 mcg PRN Q2HR PRN IV PAIN; Start 10/15/16 at 12:15; Stop 10/16/16 at 12:14 Sodium Chloride 1,000 ml @ 125 mls/hr Q8H IV Last administered on 10/16/16 05: 48; Start 10/15/16 at 14:00; Stop 10/16/16 at 13:59 Multivitamins/ Minerals/Folic Acid/Thiamine HCl/ Sodium Chloride (Infuvite Adult / Iv Sodium Chloride 0.9% 1000ml Bag) 1,011.2 ml @ 1,000 mls/ hr 1X ONCE IV Last administered on 10/15/16 12:43; Start 10/15/16 at 13:00; Stop 10/15/16 at 14: 00; Status DC Iohexol (Omnipaque 300 Mg/ml) 75 ml 1X ONCE IV Last administered on 10/15/16 18:11; Start 10/15/16 at 16:30; Stop 10/15/16 at 16:31; Status DC Iohexol (Omnipaque 240 Mg/ml) 50 ml 1X ONCE PO Last administered on 10/15/16 16:30; Start 10/15/16 at 16:30; Stop 10/15/16 at 16:31; Status DC Info 1 each 1 each PRN DAILY PRN MC SEE COMMENTS; Start 10/15/16 at 16:30; Stop 10/17/16 at 16:29 Piperacillin Sod/ Tazobactam Sod/ Sodium Chloride (Zosyn/Iv Sodium Chloride 0.9 % 50ml) 50 ml @ 100 mls/hr Q6HRS IV Last administered on 10/16/16 05:48; Start 10/15/16 at 18:00 Ondansetron HCl (Zofran) 4 mg PRN Q6HRS PRN IV NAUSEA/VOMITING 1st choice; Start 10/16/16 at 07:15 Potassium Chloride (Klor-Con) 40 meq 1X ONCE PO Last administered on 10/16/16 08:37; Start 10/16/16 at 07:15; Stop 10/16/16 at 07:17; Status DC Vitals/I & O Vital Sign - Last 24 Hours 10/15/16 10/15/16 10/15/16 10/15/16 10:10 11:00 12:00 13:25 Temp 98.1 99.7 98.1 99.7 Pulse 77 74 72 81 Resp 18 18 18 18 B/P 139/83 136/82 137/82 120/61 Pulse Ox 97 97 96 97 O2 Delivery Room Air Room Air Room Air Room Air 10/15/16 10/15/16 10/15/16 10/15/16 13:51 15:00 16:50 19:00 Temp 101.5 98.7 100.7 101.5 98.7 100.7 Pulse 90 91 Resp 18 20 B/P 123/69 110/62 Pulse Ox 97 95 O2 Delivery Room Air Room Air Room Air 10/15/16 10/15/16 10/16/16 10/16/16 20:05 23:00 03:00 07:00 Temp 98.6 99.9 97.9 98.6 99.9 97.9 Pulse 85 84 82 Resp 20 20 18 B/P 102/64 107/68 117/65 Pulse Ox 93 94 95 O2 Delivery Room Air Room Air Room Air Room Air Intake and Output 10/15/16 10/15/16 10/16/16 15:00 23:00 07:00 Intake Total 0 ml 220 ml Balance 0 ml 220 ml YAYA KOEHLER MD Oct 16, 2016 09:05
--- NOTE | 2016-10-16 10:37 | RAD ---
EXAM: Right upper quadrant ultrasound. HISTORY: Right upper quadrant pain. COMPARISON: None. FINDINGS: Sonographic evaluation of the right upper quadrant was performed. Mild hyperechogenicity of the hepatic parenchyma suggests mild diffuse hepatic steatosis. There are no focal lesions. The gallbladder is unremarkable without evidence of stones, wall thickening or pericholecystic fluid. There is some dense bile dependently. There is no sonographic Miranda sign. The common duct measures 4 mm. The visualized portions of the head of the pancreas reveal no abnormality. The right kidney measures 10.7 cm. Cortical thickness and echogenicity are preserved. There is no hydronephrosis. The visualized portions of the abdominal aorta and inferior vena cava are grossly patent and normal in caliber. IMPRESSION: 1. Mild diffuse hepatic steatosis.
[2016-10-16 10:57] VITALS: BP 123/66
--- NOTE | 2016-10-16 11:11 | PDOC ---
Infectious Disease Note Vital Sign Vital Signs Vital Signs Date Time Temp Pulse Resp B/P Pulse Ox O2 Delivery O2 Flow Rate FiO2 10/16/16 10:57 98.1 83 18 123/66 96 Room Air 98.1 Labs Lab Laboratory Tests Test 10/15/16 11:30 10/16/16 03:20 Urine Collection Type Unknown Urine Color Yellow Urine Clarity Cloudy Urine pH 8.0 Urine Specific [place] 1.015 Urine Protein Negativemg/dL (NEG-TRACE) Urine Glucose (UA) Negativemg/dL (NEG) Urine Ketones (Stick) Negativemg/dL (NEG) Urine Blood Negative (NEG) Urine Nitrite Negative (NEG) Urine Bilirubin Negative (NEG) Urine Urobilinogen Dipstick 1.0mg/dL (0.2 mg/dL) Urine Leukocyte Esterase Negative (NEG) Urine RBC 0/HPF (0-2) Urine WBC 0/HPF (0-4) Urine Squamous Epithelial Cells None/LPF Urine Amorphous Sediment Present/HPF Urine Bacteria 0/HPF (0-FEW) White Blood Count 6.4x10^3/uL (4.0-11.0) Red Blood Count 3.97x10^6/uL (3.50-5.40) Hemoglobin 12.3g/dL (12.0-15.5) Hematocrit 36.3% (36.0-47.0) Mean Corpuscular Volume 91fL (79-100) Mean Corpuscular Hemoglobin 31pg (25-35) Mean Corpuscular Hemoglobin Concent 34g/dL (31-37) Red Cell Distribution Width 13.2% (11.5-14.5) Platelet Count 153x10^3/uL (140-400) Neutrophils (%) (Auto) 80% (31-73) Lymphocytes (%) (Auto) 13% (24-48) Monocytes (%) (Auto) 6% (0-9) Eosinophils (%) (Auto) 1% (0-3) Basophils (%) (Auto) 0% (0-3) Neutrophils # (Auto) 5.1x10^3uL (1.8-7.7) Lymphocytes # (Auto) 0.8x10^3/uL (1.0-4.8) Monocytes # (Auto) 0.4x10^3/uL (0.0-1.1) Eosinophils # (Auto) 0.1x10^3/uL (0.0-0.7) Basophils # (Auto) 0.0x10^3/uL (0.0-0.2) Sodium Level 145mmol/L (136-145) Potassium Level 3.2mmol/L (3.5-5.1) Chloride Level 109mmol/L (98-107) Carbon Dioxide Level 25mmol/L (21-32) Anion Gap 11 (6-14) Blood Urea Nitrogen 15mg/dL (7-20) Creatinine 0.9mg/dL (0.6-1.0) Estimated GFR (Cockcroft-Gault) 78.1 Glucose Level 83mg/dL (70-99) Calcium Level 7.9mg/dL (8.5-10.1) Total Bilirubin 0.7mg/dL (0.2-1.0) Direct Bilirubin 0.2mg/dL (0.0-0.2) Aspartate Amino Transf (AST/SGOT) 23U/L (15-37) Alanine Aminotransferase (ALT/SGPT) 28U/L (14-59) Alkaline Phosphatase 58U/L (46-116) Total Protein 5.7g/dL (6.4-8.2) Albumin 3.0g/dL (3.4-5.0) Amylase Level 102U/L (25-115) Lipase 224U/L (73-393) Objective Assessment Fever Pancreatitis Plan Plan of Care d/c antibiotics if tolerates diet and no fever d/c tomorrow FABIOLA CROSS MD Oct 16, 2016 11:11
--- NOTE | 2016-10-16 12:59 | PDOC ---
Subjective: Subjective: Feeling much better w/ minimal residual pain. Eating w/o issue. Objective: Vital Signs: Vital Signs Date Time Temp Pulse Resp B/P Pulse Ox O2 Delivery O2 Flow Rate FiO2 10/16/16 10:57 98.1 83 18 123/66 96 Room Air 98.1 Labs: Laboratory Tests Test 10/16/16 03:20 White Blood Count 6.4x10^3/uL Red Blood Count 3.97x10^6/uL Hemoglobin 12.3g/dL Hematocrit 36.3% Mean Corpuscular Volume 91fL Mean Corpuscular Hemoglobin 31pg Mean Corpuscular Hemoglobin Concent 34g/dL Red Cell Distribution Width 13.2% Platelet Count 153x10^3/uL Neutrophils (%) (Auto) 80% Lymphocytes (%) (Auto) 13% Monocytes (%) (Auto) 6% Eosinophils (%) (Auto) 1% Basophils (%) (Auto) 0% Neutrophils # (Auto) 5.1x10^3uL Lymphocytes # (Auto) 0.8x10^3/uL Monocytes # (Auto) 0.4x10^3/uL Eosinophils # (Auto) 0.1x10^3/uL Basophils # (Auto) 0.0x10^3/uL Sodium Level 145mmol/L Potassium Level 3.2mmol/L Chloride Level 109mmol/L Carbon Dioxide Level 25mmol/L Anion Gap 11 Blood Urea Nitrogen 15mg/dL Creatinine 0.9mg/dL Estimated GFR (Cockcroft-Gault) 78.1 Glucose Level 83mg/dL Calcium Level 7.9mg/dL Total Bilirubin 0.7mg/dL Direct Bilirubin 0.2mg/dL Aspartate Amino Transf (AST/SGOT) 23U/L Alanine Aminotransferase (ALT/SGPT) 28U/L Alkaline Phosphatase 58U/L Total Protein 5.7g/dL Albumin 3.0g/dL Amylase Level 102U/L Lipase 224U/L Imaging: CT A/P 10/15/16 Images through the lung bases demonstrate minimal dependent subsegmental atelectasis bilaterally. The liver parenchyma has a decreased attenuation consistent with mild fatty infiltration. The spleen, adrenal glands and kidneys are within normal limits. No focal abnormality of the pancreas is seen. No pancreatic pseudocyst is noted. The abdominal aorta tapers normally. Mild atherosclerotic calcification of the abdominal aorta is seen. The gallbladder is contracted. No free fluid or free air is seen within the abdomen. Air and stool is seen throughout the colon. The appendix is well-visualized and is within normal limits. Images through the pelvis demonstrate the urinary bladder distended with urine. Calcifications are seen within the pelvis consistent with phleboliths. No free fluid is seen. Minimal S shaped curvature of the thoracolumbar spine is seen. Degenerative changes are seen involving the lower thoracic and mid and lower lumbar spine. Impression: No acute abnormality is seen. Abd US 10/16/16 FINDINGS: Sonographic evaluation of the right upper quadrant was performed. Mild hyperechogenicity of the hepatic parenchyma suggests mild diffuse hepatic steatosis. There are no focal lesions. The gallbladder is unremarkable without evidence of stones, wall thickening or pericholecystic fluid. There is some dense bile dependently. There is no sonographic Miranda sign. The common duct measures 4 mm. The visualized portions of the head of the pancreas reveal no abnormality. The right kidney measures 10.7 cm. Cortical thickness and echogenicity are preserved. There is no hydronephrosis. The visualized portions of the abdominal aorta and inferior vena cava are grossly patent and normal in caliber. IMPRESSION: 1. Mild diffuse hepatic steatosis. PE: GEN: NAD, laying in bed LUNGS: CTAB HEART: RRR ABD: S/ND, very mild LUQ discomfort NEURO/PSYCH: A & O 3 A/P: Pancreatitis, recurrent -imaging unrevealing as above -pain improved, tolerating diet, lipase now WNL -- ?panc enzymes Note plans to ADAT. ERNESTO ESPOSITO Oct 16, 2016 12:59
[2016-10-16 14:40] VITALS: BP 117/60
[2016-10-16 19:00] VITALS: BP 126/70
[2016-10-16 23:00] VITALS: BP 124/83
--- NOTE | 2016-10-17 01:29 | CONS ---
DATE OF CONSULTATION: 10/16/2016 REQUESTING PHYSICIAN: Dr. Mccracken. REASON FOR CONSULTATION: Fever and pancreatitis. HISTORY OF PRESENT ILLNESS: This is a 55-year-old -[place] female with history of pancreatitis in the past who took one drink she says and she ended up with abdominal pain, had a fever, elevated amylase and lipase and admitted, started on Zosyn. Now, she says the pain is gone. She feels fine. There is no nausea, vomiting, diarrhea. Denies any chest pain, abdominal pain. Denies any cough, shortness of breath, headache or visual symptoms. PAST MEDICAL HISTORY: Positive for history of pancreatitis in the past and she has had this happened to 3 months ago and she forgot and she thought she may be able to get by with one drink and it ended up with this. SOCIAL HISTORY: Negative for smoking. She says she does not drink much or hardly ever because of this kind of thing has happened before. ALLERGIES: No known drug allergies. CURRENT MEDICATIONS: Reviewed. The patient is on Zosyn. REVIEW OF SYSTEMS: As per HPI, all other systems reviewed are negative. PHYSICAL EXAMINATION: GENERAL: Alert and oriented female, not in distress. VITAL SIGNS: Stable now afebrile. The patient did have 101.5. HEENT: Anicteric. NECK: Supple, no JVP, no lymphadenopathy. LUNGS: Clear. HEART: S1, S2 regular. ABDOMEN: Benign. EXTREMITIES: No edema, cyanosis. SKIN: Unremarkable. NEUROLOGIC: The patient is neurologically intact. LABORATORY DATA: White count is normal. BUN and creatinine is normal. Amylase, lipase in 1 day just went back down from 290-102 [address] unremarkable. Ultrasound of the abdomen unremarkable. Blood cultures have been done is so far negative. IMPRESSION: 1. Acute pancreatitis. 2. Fever secondary to number 1. RECOMMENDATIONS: We would discontinue antibiotics, supportive care, try diet, if she is able to tolerate diet and there is no more fever then the patient can be discharged tomorrow. Thank you very much, Dr. Mccracken, for giving me the opportunity to participate in this patient's care. FABIOLA CROSS MD DR: FEROZ/frederick JOB#: [id number] / [id number]
[2016-10-17 03:00] VITALS: BP 117/79
[2016-10-17] MEDS: PIPERACILLIN/TAZOBACTAM 3.375 GM in IV NORMAL SALINE 50ML 50 ML IV SCH (05:28)
[2016-10-17 07:00] VITALS: BP 124/68
--- NOTE | 2016-10-17 10:58 | PDOC3 ---
Discharge Summary Visit Information Date of Admission: Oct 15, 2016 Date of Discharge: Oct 17, 2016 Admitting Diagnosis Comment: 1. Alcoholic pancreatitis Final Diagnosis Problems Medical Problems: (1) Acute pancreatitis Status: Acute (2) Idiopathic pancreatitis Status: Acute Brief Hospital Course Allergies Allergies Coded Allergies Type Severity Reaction Last Updated Verified No Known Drug Allergies 10/15/16 No Vital Signs Vital Signs Date Time Temp Pulse Resp B/P Pulse Ox O2 Delivery O2 Flow Rate FiO2 10/17/16 08:00 Room Air 10/17/16 07:00 97.8 69 18 124/68 98 97.8 Lab Results Laboratory Tests Test 10/15/16 11:30 10/16/16 03:20 10/17/16 04:08 Urine Collection Type Unknown Urine Color Yellow Urine Clarity Cloudy Urine pH 8.0 Urine Specific [place] 1.015 Urine Protein Negativemg/dL (NEG-TRACE) Urine Glucose (UA) Negativemg/dL (NEG) Urine Ketones (Stick) Negativemg/dL (NEG) Urine Blood Negative (NEG) Urine Nitrite Negative (NEG) Urine Bilirubin Negative (NEG) Urine Urobilinogen Dipstick 1.0mg/dL (0.2 mg/dL) Urine Leukocyte Esterase Negative (NEG) Urine RBC 0/HPF (0-2) Urine WBC 0/HPF (0-4) Urine Squamous Epithelial Cells None/LPF Urine Amorphous Sediment Present/HPF Urine Bacteria 0/HPF (0-FEW) White Blood Count 6.4x10^3/uL (4.0-11.0) Red Blood Count 3.97x10^6/uL (3.50-5.40) Hemoglobin 12.3g/dL (12.0-15.5) Hematocrit 36.3% (36.0-47.0) Mean Corpuscular Volume 91fL (79-100) Mean Corpuscular Hemoglobin 31pg (25-35) Mean Corpuscular Hemoglobin Concent 34g/dL (31-37) Red Cell Distribution Width 13.2% (11.5-14.5) Platelet Count 153x10^3/uL (140-400) Neutrophils (%) (Auto) 80% (31-73) Lymphocytes (%) (Auto) 13% (24-48) Monocytes (%) (Auto) 6% (0-9) Eosinophils (%) (Auto) 1% (0-3) Basophils (%) (Auto) 0% (0-3) Neutrophils # (Auto) 5.1x10^3uL (1.8-7.7) Lymphocytes # (Auto) 0.8x10^3/uL (1.0-4.8) Monocytes # (Auto) 0.4x10^3/uL (0.0-1.1) Eosinophils # (Auto) 0.1x10^3/uL (0.0-0.7) Basophils # (Auto) 0.0x10^3/uL (0.0-0.2) Sodium Level 145mmol/L (136-145) Potassium Level 3.2mmol/L (3.5-5.1) Chloride Level 109mmol/L (98-107) Carbon Dioxide Level 25mmol/L (21-32) Anion Gap 11 (6-14) Blood Urea Nitrogen 15mg/dL (7-20) Creatinine 0.9mg/dL (0.6-1.0) Estimated GFR (Cockcroft-Gault) 78.1 Glucose Level 83mg/dL (70-99) Calcium Level 7.9mg/dL (8.5-10.1) Total Bilirubin 0.7mg/dL (0.2-1.0) Direct Bilirubin 0.2mg/dL (0.0-0.2) Aspartate Amino Transf (AST/SGOT) 23U/L (15-37) Alanine Aminotransferase (ALT/SGPT) 28U/L (14-59) Alkaline Phosphatase 58U/L (46-116) Total Protein 5.7g/dL (6.4-8.2) Albumin 3.0g/dL (3.4-5.0) Amylase Level 102U/L (25-115) Lipase 224U/L (73-393) 173U/L (73-393) Triglycerides Level 42mg/dL (0-150) Cholesterol Level 139mg/dL (0-200) LDL Cholesterol, Calculated 62mg/dL (0-100) VLDL Cholesterol, Calculated 8mg/dL (0-40) HDL Cholesterol 69mg/dL (40-60) Cholesterol/HDL Ratio 2.0 Laboratory Tests Test 10/17/16 04:08 Triglycerides Level 42mg/dL (0-150) Cholesterol Level 139mg/dL (0-200) LDL Cholesterol, Calculated 62mg/dL (0-100) VLDL Cholesterol, Calculated 8mg/dL (0-40) HDL Cholesterol 69mg/dL (40-60) Cholesterol/HDL Ratio 2.0 Lipase 173U/L (73-393) Brief Hospital Course Ms. [place] is a 55 old AA female who only drinks few beers in a month,and drank 2 glasses of wine the day [employer], then had emesis, abd pain, went to ER, elevated lipase >1100, treated for acute panc. CT abd and US for GB dse was neg , LIPIDs ok, NON diabetic, GI consulted,. 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 Started when she was and gets episodes few times a yr? STable to go home, no rx needed Advised. Education> 50%, time 32 mins COnults: GI Proc: US and CT abd - both neg Discharge Information Condition at Discharge: Improved, Stable Disposition/Orders: D/C to Home YAYA KOEHLER MD Oct 17, 2016 10:58
--- NOTE | 2016-10-17 11:10 | PDOC ---
Infectious Disease Note Subjective Subjective feeling good ROS ROS GEN: Denies fevers, chills, sweats HEENT: Denies blurred vision, sore throat CV: Denies chest pain RESP: Denies shortness of air, cough GI: Denies n/v/d NEURO: Denies confusion, dizziness MSK: Denies weakness, joint pain/swelling Vital Sign Vital Signs Vital Signs Date Time Temp Pulse Resp B/P Pulse Ox O2 Delivery O2 Flow Rate FiO2 10/17/16 08:00 Room Air 10/17/16 07:00 97.8 69 18 124/68 98 97.8 Physical Exam PHYSICAL EXAM GENERAL: NAD, Alert HEENT: PERRL, OC/OP NECK: Supple, no JVD, no LN LUNGS: Clear HEART: S1S2, no gallop, no murmur ABD: Soft, NT, no organomegaly, no rebound EXT: No edema, no cyanosis SHIP WASHER: Alert, oriented x 3, no focal neurologic deficit SKIN: No rash IV: ok Labs Lab Laboratory Tests Test 10/17/16 04:08 Triglycerides Level 42mg/dL (0-150) Cholesterol Level 139mg/dL (0-200) LDL Cholesterol, Calculated 62mg/dL (0-100) VLDL Cholesterol, Calculated 8mg/dL (0-40) HDL Cholesterol 69mg/dL (40-60) Cholesterol/HDL Ratio 2.0 Lipase 173U/L (73-393) Objective Assessment Fever Pancreatitis Plan Plan of Care d/c FABIOLA Yoon MD Oct 17, 2016 11:10
--- NOTE | 2016-10-17 12:13 | PDOC ---
Subjective: Subjective: Feeling better w/o pain. Ready to go home. Objective: Vital Signs: Vital Signs Date Time Temp Pulse Resp B/P Pulse Ox O2 Delivery O2 Flow Rate FiO2 10/17/16 08:00 Room Air 10/17/16 07:00 97.8 69 18 124/68 98 97.8 Labs: Laboratory Tests Test 10/17/16 04:08 Triglycerides Level 42mg/dL Cholesterol Level 139mg/dL LDL Cholesterol, Calculated 62mg/dL VLDL Cholesterol, Calculated 8mg/dL HDL Cholesterol 69mg/dL Cholesterol/HDL Ratio 2.0 Lipase 173U/L PE: GEN: NAD, sitting on edge of bed finishing lunch LUNGS: clear anteriorly HEART: RRR ABD: BS+, S/ND, less LUQ tenderness NEURO/PSYCH: A & O 3 A/P: Pancreatitis, recurrent -imaging unrevealing as above -pain improved, tolerating diet, lipase now WNL -declined pancreatic enzymes (although worked well for her in the past) -- DC okay per GI - follow-up for screening colonoscopy. ERNESTO ESPOSITO Oct 17, 2016 12:13
== END 2016-10-17 13:00 | disposition home or self-care (01) | DRG 440 ==
LOC: ER 10:10 → 5 SOUTH 11:58
PROVIDERS: ADMIT Internal Medicine; ATTEND Internal Medicine
DX: K85.20 Alcohol induced acute pancreatitis without necrosis or infection (principal); K59.00 Constipation, unspecified; K86.1 Other chronic pancreatitis; R73.03 Prediabetes; Z82.49 Family history of ischemic heart disease and other diseases of the circulatory system; Z83.3 Family history of diabetes mellitus
CPT/HCPCS: 36415; 74022; 74177; 76705; 80048; 80053; 80061; 80076; 81001; 82150; 83690; 84478; 85007; 85027; 87040; 96374; C9113; J2405; J2543; J7030; Q9966; Q9967; 99285-25